=== PATIENT | male | born 1995 | race Caucasian/White ===

== ENCOUNTER 2018-04-12 18:44 | Day surgery (SDC) | payer OTHER ==
[~2018-04-12] VITALS: Ht 182.9 cm; Wt 95.0 kg
[2018-04-12 19:28] LABS: BASOPHIL (%) 0.5 % (0-1); EOSINOPHIL (%) 1.1 % (0-5); EOSINOPHIL COUNT 0.1 K/uL (0-0.3); HEMATOCRIT 37.8 % (38.0-50.0); IMMATURE GRANULOCYTE (%) 0.2 % (0.0-0.7); LYMPHOCYTE COUNT 1.3 K/uL (1.0-2.8); MCH 30.2 PG (29.0-34.0); MCHC 34.4 G/DL (30.0-36.0); MCV 87.9 FL (86-99); MONOCYTE (%) 16.4 % (3-12); MONOCYTE COUNT 1.4 K/uL (0-0.8); NEUTROPHIL (%) 66.8 % (45-76); NEUTROPHIL COUNT 5.6 K/uL (1.8-6.4); PLATELET COUNT 320 K/uL (156-360); RBC DIS.WIDTH-SD 38.7 % (39-53); WHITE BLOOD COUNT 8.4 K/uL (4.1-10.2)
[2018-04-12 19:32] LABS: CHLORIDE 103 mEq/L (99-109)
[2018-04-12 19:33] LABS: POTASSIUM 4.3 mEq/L (3.7-5.4); SODIUM 138 mEq/L (136-147)
[2018-04-12 19:34] LABS: GLUCOSE 125 mg/dL (70-99)
[2018-04-12 19:38] LABS: CREATININE 0.9 mg/dL (0.6-1.3)
[2018-04-12 19:39] LABS: UREA NITROGEN (BUN) 14 mg/dL (9-23)
[2018-04-12 19:42] LABS: GFR ESTIMATE (CALCULATED) > 59 mL/min/ (58.99-99999)
[2018-04-12 21:02] LABS: CREATINE KINASE 584 IU/L (1-294)
[2018-04-12] MEDS ORDERED: BACTRIM,SEPT1 TABLET PO (21:53)
[2018-04-12] MEDS ORDERED: CEPHALEXIN500 MG PO (21:54)
[2018-04-13 04:51] VITALS: BP 126/63
[2018-04-13 07:58] VITALS: BP 102/62
[2018-04-13 11:53] VITALS: BP 107/55
[2018-04-13 16:24] VITALS: BP 96/58
[2018-04-13 19:50] VITALS: BP 122/61
[2018-04-14 00:04] VITALS: BP 113/62
[2018-04-14 03:55] VITALS: BP 110/60
[2018-04-14 06:38] LABS: HEMATOCRIT 36.3 % (38.0-50.0); HEMOGLOBIN 11.8 G/DL (12.5-16.6); MCH 29.1 PG (29.0-34.0); MCHC 32.5 G/DL (30.0-36.0); MCV 89.6 FL (86-99); PLATELET COUNT 317 K/uL (156-360); RBC DIS.WIDTH-CV 11.9 % (11.8-14.6); RBC DIS.WIDTH-SD 39.4 % (39-53); RED BLOOD COUNT 4.05 M/uL (4.00-5.50)
[2018-04-14 07:00] LABS: CHLORIDE 107 MEQ/L (99-109); CREATININE 0.9 MG/DL (0.6-1.3); GFR ESTIMATE (CALCULATED) > 59 mL/min/ (58.99-99999); GLUCOSE 110 mg/dL (70-99); POTASSIUM 4.5 MEQ/L (3.7-5.4); SODIUM 141 MEQ/L (136-147); UREA NITROGEN (BUN) 13 mg/dL (9-23)
[2018-04-14 07:32] LABS: BASOPHIL (%) 0.3 % (0-1); EOSINOPHIL (%) 0.7 % (0-5); EOSINOPHIL COUNT 0.1 K/uL (0-0.3); IMMATURE GRANULOCYTE (%) 0.4 % (0.0-0.7); LYMPHOCYTE (%) 30.2 % (15-42); LYMPHOCYTE COUNT 2.1 K/uL (1.0-2.8); MONOCYTE (%) 13.5 % (3-12); NEUTROPHIL (%) 54.9 % (45-76); NEUTROPHIL COUNT 3.9 K/uL (1.8-6.4)
[2018-04-14 08:19] VITALS: BP 97/54
[2018-04-14] MEDS ORDERED: ENDOCET 5-3251 EACH PO (11:33)
== END 2018-04-14 14:22 | disposition home or self-care (01) ==
LOC: EME 18:44 → SDC 04-13 01:50 → EME 04-13 01:50 → 2SOUTH 04-13 02:29 → ENRESERV 04-13 02:58 → 2EASTP 04-13 03:30
PROVIDERS: Student in an Organized Health Care Education/Training Program
PROC: 0J9N0ZZ Drainage of Right Lower Leg Subcutaneous Tissue and Fascia, Open Approach (ICD-10-PCS; principal; 2018-04-13)
DX: S81.811A Laceration without foreign body, right lower leg, initial encounter (principal); S80.11XA Contusion of right lower leg, initial encounter; V86.59XA Driver of other special all-terrain or other off-road motor vehicle injured in nontraffic accident, initial encounter
CPT/HCPCS: 73590; 73701; 80048; 82550; 83605; 85025; 87040; 87070; 87075; 87205; 93971; 99281; 99285; G0378; J1100; J1170; J1885; J2543; J3010; J3370; J7030; J7050; J7120

== ENCOUNTER 2018-05-19 15:50 | Emergency (ER) | payer OTHER ==
[~2018-05-19] VITALS: Ht 188 cm; Wt 90.8 kg
[~2018-05-19 15:50] MED LIST: BACTRIM,SEPT1 TABLET PO; CEPHALEXIN500 MG PO; ENDOCET 5-3251 EACH PO
[2018-05-19 16:46] LABS: HEMATOCRIT 40.8 % (38.0-50.0); MCH 30.4 PG (29.0-34.0); MCHC 34.3 G/DL (30.0-36.0); MCV 88.5 FL (86-99); PLATELET COUNT 207 K/uL (156-360); RBC DIS.WIDTH-CV 12.5 % (11.8-14.6); RBC DIS.WIDTH-SD 40.4 % (39-53); RED BLOOD COUNT 4.61 M/uL (4.00-5.50); WHITE BLOOD COUNT 5.6 K/uL (4.1-10.2)
[2018-05-19 17:03] LABS: CHLORIDE 108 mEq/L (99-109); POTASSIUM 4.2 mEq/L (3.7-5.4); SODIUM 144 mEq/L (136-147)
[2018-05-19 17:05] LABS: GLUCOSE 106 mg/dL (70-99)
[2018-05-19 17:08] LABS: CREATININE 0.8 mg/dL (0.6-1.3); GFR ESTIMATE (CALCULATED) > 59 mL/min/ (58.99-99999)
[2018-05-19 17:09] LABS: UREA NITROGEN (BUN) 11 mg/dL (9-23)
[2018-05-19] MEDS ORDERED: AUGMENTIN875 MG PO (19:00)
[2018-05-19 19:21] VITALS: BP 130/75
== END 2018-05-19 19:23 | disposition home or self-care (01) ==
LOC: EME 15:50 → RME 15:50
PROVIDERS: Nurse Practitioner Family
DX: S81.801A Unspecified open wound, right lower leg, initial encounter (principal); L02.415 Cutaneous abscess of right lower limb; V86.99XA Unspecified occupant of other special all-terrain or other off-road motor vehicle injured in nontraffic accident, initial encounter
CPT/HCPCS: 73701; 80048; 85027; 99281; 99285; J7030

== ENCOUNTER → 2018-05-27 | Outpatient (CLI) | payer OTHER ==
[~2018-05-27] MED LIST changes: +AUGMENTIN875 MG PO
== END | disposition home or self-care (01) ==
LOC: RAD 09:53
DX: R60.0 Localized edema (principal)
CPT/HCPCS: 76881